=== PATIENT | male | born 1950 | race Hispanic/Latino ===

== ENCOUNTER 2018-09-16 13:49 | Emergency (ER) | payer MEDICARE ==
[2018-09-16 15:30] LABS: BASOPHILS % (AUTO) 0.9 % (0.0-5.0); EOSINOPHILS % (AUTO) 0.8 % (0.0-8.0); HEMATOCRIT 39.4 % (42-54); LYMPHOCYTES % (AUTO) 36.1 % (21.0-51.0); MEAN CORPUSCULAR HEMOGLOBIN 32.8 pg (27.0-33.0); MEAN CORPUSCULAR HGB CONC 34.9 g/dL (32.0-36.0); MONOCYTES % (AUTO) 6.7 % (3.0-13.0); NEUTROPHILS % (AUTO) 55.5 % (40.0-77.0); PLATELET COUNT (AUTO) 189 K/uL (130-400); RED BLOOD CELL COUNT(AUTO) 4.19 MIL/uL (4.50-6.20); RED CELL DISTRIBUTION WIDTH 13.9 % (11.0-15.5); WHITE BLOOD COUNT (AUTO) 4.7 K/uL (4.8-10.8)
[2018-09-16 15:43] LABS: CREATININE 1.2 mg/dL (0.5-1.5); POTASSIUM 3.9 mmol/L (3.5-5.1)
[2018-09-16 15:48] LABS: ALBUMIN 3.9 g/dL (3.5-5.0); BILIRUBIN,DIRECT 0.1 mg/dL (0.0-0.3); BILIRUBIN,TOTAL 0.4 mg/dL (0.2-1.0); TOTAL PROTEIN, SERUM 6.8 g/dL (6.0-8.3)
[2018-09-16 15:58] LABS: B-TYPE NATRIURETIC PEPTIDE 15 pg/mL (0-100)
[2018-09-16] MEDS ORDERED: DEXAMETHASONE SOD PHOSPHATE 10MG/ML 1ML VIAL ONE (17:18)
== END 2018-09-16 17:39 | disposition home or self-care (01) ==
LOC: EDH 13:49
DX: J20.9 Acute bronchitis, unspecified (principal); R07.89 Other chest pain; K21.9 Gastro-esophageal reflux disease without esophagitis; E78.5 Hyperlipidemia, unspecified; I10 Essential (primary) hypertension
CPT/HCPCS: 36415; 71046; 80048; 80076; 82550; 83880; 84484; 85025; 85378; 93005; 96374; 99285; J1100

== ENCOUNTER → 2018-10-20 | Outpatient (CLI) | payer OTHER | END | disposition home or self-care (01) | LOC: RAH 11:39 | PROVIDERS: ATTEND Orthopaedic Surgery | DX: M19.071 Primary osteoarthritis, right ankle and foot (principal); M77.31 Calcaneal spur, right foot | CPT/HCPCS: 73630 ==

== ENCOUNTER 2019-02-22 17:05 | Emergency (ER) | payer OTHER | END 2019-02-22 18:25 | disposition home or self-care (01) | LOC: EDH 17:05 | DX: J20.9 Acute bronchitis, unspecified (principal); J10.1 Influenza due to other identified influenza virus with other respiratory manifestations; K21.9 Gastro-esophageal reflux disease without esophagitis; I10 Essential (primary) hypertension; E78.5 Hyperlipidemia, unspecified; Z98.890 Other specified postprocedural states | CPT/HCPCS: 71045; 87804 ==

== ENCOUNTER 2021-07-08 08:12 | Emergency (ER) | payer OTHER ==
[~2021-07-08] VITALS: Ht 185.4 cm; Wt 104.3 kg
[2021-07-08] MEDS ORDERED: KETOROLAC 30MG VIAL (30MG/ML) IM ONE (08:30)
[2021-07-08 09:23] VITALS: BP 142/67
[2021-07-08] MEDS ORDERED: NAPR-1196 PO (09:46)
[2021-07-09] MEDS ORDERED: TRAM50TA2 PO (02:42)
[2021-07-09] MEDS ORDERED: LIDOP TD (02:42)
== END 2021-07-08 10:11 | disposition home or self-care (01) ==
LOC: EDH 08:12
DX: M94.0 Chondrocostal junction syndrome [Tietze] (principal); E78.00 Pure hypercholesterolemia, unspecified; I10 Essential (primary) hypertension; J45.909 Unspecified asthma, uncomplicated; F43.10 Post-traumatic stress disorder, unspecified; Z90.49 Acquired absence of other specified parts of digestive tract
CPT/HCPCS: 71101; 93005; 96372; 99283; J1885

== ENCOUNTER 2021-07-09 00:18 | Emergency (ER) | payer OTHER ==
[~2021-07-09] VITALS: Ht 185.4 cm; Wt 106.6 kg
[~2021-07-09 00:18] MED LIST: NAPR-1196 PO
[2021-07-09 01:07] VITALS: BP 150/67
[2021-07-09] MEDS ORDERED: KETOROLAC 30MG VIAL (30MG/ML) IM ONE (01:30)
[2021-07-09] MEDS ORDERED: HYDROCODONE/ACETAMINOPHEN 10/325 MG TAB PO ONE (01:30)
[2021-07-09] MEDS ORDERED: TRAM50TA2 PO (02:42)
[2021-07-09] MEDS ORDERED: LIDOP TD (02:42)
== END 2021-07-09 02:52 | disposition home or self-care (01) ==
LOC: EDH 00:18
DX: S22.32XA Fracture of one rib, left side, initial encounter for closed fracture (principal); J45.909 Unspecified asthma, uncomplicated; E78.00 Pure hypercholesterolemia, unspecified; I10 Essential (primary) hypertension; F43.10 Post-traumatic stress disorder, unspecified; Z90.49 Acquired absence of other specified parts of digestive tract; Z98.890 Other specified postprocedural states; Z79.899 Other long term (current) drug therapy; W18.09XA Striking against other object with subsequent fall, initial encounter; Y93.89 Activity, other specified; Y92.89 Other specified places as the place of occurrence of the external cause; Y99.8 Other external cause status
CPT/HCPCS: 71101; 96372; 99283; J1885